=== PATIENT | female | born 1980 | race African-American/Black ===

== ENCOUNTER 2020-12-17 05:05 | Day surgery (SDC) | payer BC ==
[2020-12-14 09:06] VITALS: BMI 26.4
[2020-12-17] MEDS ORDERED: BUPIVACAINE HCL/PF 0.5% (5MG/ML) 10 ML VIAL ONE (12:16)
[2020-12-17] MEDS ORDERED: LIDOCAINE HCL 1%, 10 MG/ML (20ML VIAL) ONE (12:16)
[2020-12-17] MEDS ORDERED: MIDAZOLAM HCL 2 MG/2 ML SINGLE DOSE VIAL ONE (13:14)
[2020-12-17] MEDS ORDERED: PROPOFOL 20 ML ONE ×2 (13:14)
[2020-12-17] MEDS ORDERED: ceFAZolin SODIUM 1 GM VIAL ONE (14:51)
[2020-12-17] MEDS ORDERED: ceFAZolin SODIUM 1 GM VIAL IVPB ONE (14:52)
[2020-12-17] MEDS ORDERED: DEXAMETHASONE SOD PHOSPHATE 4 MG/1 ML VIAL ONE (14:53)
[2020-12-17] MEDS ORDERED: BUPIVACAINE HCL/PF 0.5% (5MG/ML) 10 ML VIAL IJ ONE (14:59)
[2020-12-17] MEDS ORDERED: LIDOCAINE HCL 1%, 10 MG/ML (20ML VIAL) NR ONE (14:59)
[2020-12-17] MEDS ORDERED: KETOROLAC TROMETHAMINE 30 MG/1 ML VIAL ONE (15:11)
[2020-12-17] MEDS ORDERED: BENZOIN/ALOE VERA/STORAX/TOLU 58 ML BOTTLE TP ONE (15:16)
[2020-12-17] MEDS ORDERED: oxyCODONE HCL 5 MG TABLET PO PRN ×2 (16:09)
[2020-12-17] MEDS ORDERED: ONDANSETRON 4 MG/2 ML VIAL IVPUSH PRN (16:09)
[2020-12-17] MEDS ORDERED: LACTATED RINGERS SOLUTION 1,000 ML IV SCH (16:15)
[2020-12-17 18:08] VITALS: BP 108/64; PULSE 74; TEMP 98
== END 2020-12-17 17:15 | disposition home or self-care (01) ==
LOC: JASU-SURG 05:05
PROVIDERS: ATTEND Surgery
PROC: 0JBD0ZZ Excision of Right Upper Arm Subcutaneous Tissue and Fascia, Open Approach (ICD-10-PCS; principal; 2020-12-17 13:00)
DX: D17.21 Benign lipomatous neoplasm of skin and subcutaneous tissue of right arm (principal)
CPT/HCPCS: 81025; 94760

== ENCOUNTER 2023-06-01 19:40 | Emergency (ER) | payer BC, OTHER ==
[2023-06-01 19:57] VITALS: BP 107/71; PULSE 88; RESP 16; TEMP 97.7; BMI 31.2
== END 2023-06-01 22:33 | disposition home or self-care (01) ==
LOC: FER 19:40
DX: O26.892 Other specified pregnancy related conditions, second trimester (principal); R10.31 Right lower quadrant pain; Z3A.19 19 weeks gestation of pregnancy
CPT/HCPCS: 76801-TC; 81003; 99284-25